=== PATIENT | male | born 1950 | race Caucasian/White ===

== ENCOUNTER → 2017-04-17 | Outpatient (CLI) | payer MEDICARE ==
[~2017-04-17] MED LIST: BLOOD PRESSURE MED PO; CHOLESTEROL MED PO; LO-DOSE ASPIRIN81 M1 PO; MULTI VITS; NAPROSYN500 MG PO; NAPROXEN500 MG PO; NORCO 5/3251 TABLET PO
== END | disposition home or self-care (01) ==
LOC: CDC 14:23
DX: Z01.810 Encounter for preprocedural cardiovascular examination (principal); R94.31 Abnormal electrocardiogram [ECG] [EKG]
CPT/HCPCS: 93000